=== PATIENT | male | born 1930 | race Asian ===

== ENCOUNTER → 2018-02-23 | Outpatient (CLI) | payer OTHER | LOC: BHFA 11:30 | PROVIDERS: ATTEND Internal Medicine | DX: R94.30 Abnormal result of cardiovascular function study, unspecified (principal); R06.02 Shortness of breath ==

== ENCOUNTER 2018-03-01 06:57 | Observation (INO) | payer OTHER, MEDICAID ==
[2018-03-01] MEDS ORDERED: diphenhydrAMINE 25 MG CAP PO ONE (07:05)
[2018-03-01] MEDS ORDERED: NS 1,000 ML IV ONE (07:05)
[2018-03-01] MEDS ORDERED: BACITRACIN IRRIGATION/NS 50,000 UNITS/1,000 ML BTL IRR ONE (07:05)
[2018-03-01] MEDS ORDERED: DIAZEPAM 5 MG TAB PO ONE (07:05)
[2018-03-01] MEDS ORDERED: ceFAZolin 2 GM/DEXTROSE 100 ML IV ONE (07:05)
[2018-03-01 07:52] LABS: PLATELET COUNT 221 10^3/uL (150-400)
[2018-03-01 07:59] LABS: INR 0.87 (0.83-1.16); PROTIME(PATIENT) 12.1 SEC (12.0-15.0)
[2018-03-01] MEDS ORDERED: LIDOCAINE 1% 300 MG/30 ML SDV ONE (08:05)
[2018-03-01] MEDS ORDERED: BUPIVACAINE 0.75% 10 ML SDV ONE ×2 (08:05→09:15)
[2018-03-01] MEDS ORDERED: IOPAMIDOL (ISOVUE-300) 100 ML BTL ONE (08:05)
--- NOTE | 2018-03-01 08:45 | PDGENHP ---
History & Physical Chief Complaint: chf Relevant Physical Exam: [id number] rrr cta ao3 Cardiorespiratory Assessment: for biv pacemaker (patient and daughter decline ICD)
--- NOTE | 2018-03-01 08:46 | CPEKG ---
Test Reason : OPEN Blood Pressure : / mmHG Vent. Rate : 086 BPM Atrial Rate : 079 BPM P-R Int : 156 ms QRS Dur : 140 ms QT Int : 397 ms P-R-T Axes : 045 -30 124 degrees QTc Int : 475 ms Sinus arrhythmia Left bundle branch block Confirmed by Param Otero ([id number]) on 03/01/2018 8:46:10 AM Referred By: Confirmed By:Param Otero
[2018-03-01] MEDS ORDERED: REMIFENTANIL HCL 1 MG VIAL ONE (08:58)
[2018-03-01] MEDS ORDERED: PROPOFOL/EMULSION 500 MG/50 ML BOTTLE IV ONE (08:58)
[2018-03-01] MEDS ORDERED: LIDOCAINE 2% 100 MG/5 ML SYR ONE (08:59)
[2018-03-01] MEDS ORDERED: DEXMEDETOMIDINE HCL 400 MCG in NS 100 ML IV ONE (09:00)
[2018-03-01] MEDS ORDERED: ePHEDrine SULFATE 25 MG/5 ML SYR ONE (09:43)
--- NOTE | 2018-03-01 10:49 | EPPROC ---
Electrophysiology Procedure Note: PROCEDURE PERFORMED: 1. Implantation of an A BiV Pacemaker 2. Subclavian vein angiography 3. Fluoroscopy INDICATION: Ischemic CMP LBBB PROCEDURE NOTE: Patient presented to the cardiac catheterization laboratory in a fasting, postabsorptive state. Dr. Josh Carter administered sedation. The L infraclavicular area was prepped and draped in the usual sterile fashion. Lidocaine plus bupivacaine was used for local anesthesia. l subclavian venography was performed by injection of iodinated contrast into the left antecubital vein. This was done to assure patency of the vein and also to assess for any anatomical aberrations. Using a combination of blunt and sharp dissection and electrocautery, the dissection was carried down to the prepectoral fascia. A pocket was made in this anatomical plane. All bleeding was controlled with electrocautery. The pocket was packed with gauze soaked in antibiotic solution. Fluoroscopy was utilized during the entire procedure for venous access and placement of the leads. Using a direct stick technique the L extra thoracic axillary vein was accessed with 3 sticks using the modified Seldinger technique. Placement of the guide wires into the venous system was confirmed by low pressure blood return and also by visualizing the guide wires advancing into the inferior vena cava. A purse string suture was applied around the guide wires. Two #7 [place]an sheaths were advanced under fluoroscopic guidance over the guide wires. An active fixation ventricular lead was advanced into the right ventricular apex and screwed in place. An active fixation atrial lead was advanced into the right atrial appendage and screwed in place. The peel away sheaths were removed. Pacing thresholds, sensing parameters and lead impedances were measured. There was no diaphragmatic stimulation at maximum output. The leads were sutured to the prepectoral fascia with 3 nonabsorbable sutures. A 9 [place]an sheath was advanced over the guidewire into the subclavian vein. There was localized staining of SVC RA junction with Whorley sheath. Using a [employer] delivery system the coronary sinus ostium was engaged. Occlusion retrograde coronary sinus angiography was not performed. A coronary sinus quadrapolar lead was advanced into the coronary sinus. An angioplasty wire was advanced through the lead and advanced distally into the mid portion of the lateral branch of the coronary sinus. The lead was advanced over the angioplasty wire. Pacing threshold, sensing and impedance was determined. There was diaphragmatic stimulation at maximum output from electrode 1-2 but not 3-4. The delivery system and the 9 Fr sheath were peeled away. Again, pacing threshold, sensing and impedance was determined. There was no diaphragmatic stimulation at maximum output. The CS lead was secured to the prepectoral fascia with 3 nonabsorbable sutures. Pacing threshold and sensing parameters of the RA, RV and LV leads were checked again. The gauze packing was removed from the pacemaker pocket. The pocket was again inspected for any bleeding. The lead was attached to the pacemaker securely. The pacemaker was inserted into the pocket and secured in place with a nonabsorbable suture. Fluoroscopy was performed in COHEN and LEBANESE planes to verify right sided placement of the lead. Also fluoroscopy of the pacemaker pocket was performed. The pacemaker pocket was closed in 3 layers with absorbable monocryl sutures and ev. Appropriate dressing was applied. The patient left the cardiac catheterization laboratory in stable condition. Serial Numbers: 1. Device [facility] Quadra Allure MP CRTP SN [id number] 2. Atrial Lead SJM Tendril 8TC 46 SN [id number] 3. Right Ventricular Lead SJM Tendril 8TC SN [id number] 4. Left Ventricular Lead SJM Quartet 1457Q 75 cm SN [id number] Stimulation Thresholds & Impedance Measurements: 1. Atrial Lead P 5 mV 1 V 0.5 ms 598 ohm 2. Right Ventricular Lead R 13.1 mV 0.4 V 0.5 ms 559 ohm 3. Left Ventricular Lead R 9.5 mV 0.9 V 0.5 ms 649 ohm Bahman Pacing Parameters: 1. Pacing mode DDDR 2. Lower rate 60 ppm 3. Upper qply554 ppm Patient Problems: Problems Problem Status Onset Cardiomyopathy Acute
[2018-03-01] MEDS ORDERED: NALOXONE HCL 0.4 MG/ML INJ IVP PRN (10:54)
[2018-03-01] MEDS ORDERED: fentaNYL 100 MCG/2 ML INJ IVP PRN (10:54)
[2018-03-01] MEDS ORDERED: DEXAMETHASONE 4 MG/ML VIAL IVP PRN (10:54)
[2018-03-01] MEDS ORDERED: LABETALOL HCL 5 MG/ML 20 ML MDV IVP PRN (10:54)
[2018-03-01] MEDS ORDERED: ALBUTEROL 3 ML DEYVIAL IH PRN (10:54)
[2018-03-01] MEDS ORDERED: ONDANSETRON 4 MG/2 ML VIAL IVP PRN (10:54)
--- NOTE | 2018-03-01 10:58 | POSTANESTH ---
Post Anesthetic Evaluation Cardiovascular Status: Normal, Stable Respiratory Status: Normal, Stable Level of Consciousness/Mental Status: Can Participate in Eval Pain Control: Adequate, Prn Tx Ordered Nausea/Vomiting Control: Adequate, Prn Tx Ordered Complications Possibly Related to Anesthesia: None Noted
--- NOTE | 2018-03-01 11:52 | SOAPPROG ---
SOAP Progress Note Assessment/Plan: Assessment: ANE Pre-Anesthetic Evaluation Patient Name: SUE COHEN Date of : 1930 Patient Status: Clinical Attending Provider: Fidencio Kowalski Date: 03/01/18 08:37 Initialization Date: 03/01/18 08:37 ANE History of Present Illness BiV ICD ANE Past Medical History - Cardiovascular History Hx Hypertension: Yes Hx Arrhythmias: Yes Hx Chest Pain: Yes Hx Coronary Artery / Peripheral Vascular Disease: Yes Hx CHF / Valvular Disease: Yes Cardiovascular History Comment: EF-20% - Pulmonary History Hx COPD: Yes Hx Asthma/Reactive Airway Disease: Yes - Endocrine History Hx Diabetes: Yes - Renal History Hx Renal Disorders: Yes ANE Review of Systems Review of Systems: - Exercise capacity Exercise capacity: >=4 METS ANE Patient History - Allergies Allergies/Adverse Reactions: ibuprofen [From Motrin] Allergy (Verified 02/22/18 11:46) Black Scars on Skin - Home Medications Home medications: home medication list seen and reviewed Home Medications: Aspirin [Aspirin 81mg (*)] 81 mg PO DAILY 02/22/18 [Last Taken 02/27/18 13:30] Atorvastatin Calcium [Lipitor 20 mg (*)] 20 mg PO DAILY 02/22/18 [Last Taken 12/09 20:30] Bimatoprost 0.01% [Lumigan 0.01% (*)] 1 drops EACHEYE DAILY 02/22/18 [Last Taken 02/28/18 22:30] Budesonide [Budesonide 0.5MG/2Ml Neb (*)] 0.5 mg IH BID 02/22/18 [Last Taken 12/09 21:30] Carvedilol [Coreg (*)] 3.125 mg PO BIDMEAL 02/22/18 [Last Taken 02/28/18 20:30] Dorzolamide/Timolol [Cosopt (*)] 1 drop EACHEYE BID 02/22/18 [Last Taken 18:30] Furosemide [Lasix 20 MG (*)] 20 mg PO DAILY 02/22/18 [Last Taken 02/28/18 22:30] Herbals/Supplements -Info Only 1 ea PO DAILY 02/22/18 [Last Taken 02/28/18 22:30 ] Insulin Glargine [Lantus 100 UNITS/ML (*)] 14 units SC DAILY 02/22/18 [Last Taken 02/28/18 22:30] Insulin Lispro [Humalog] 4 - 5 unit SQ TIDMEAL 02/22/18 [Last Taken 02/28/18 22: 30] Ipratropium/Albuterol [Duoneb (*)] 3 ml IH TID 02/22/18 [Last Taken 02/28/18 21: 30] Montelukast Sodium [Singulair 10 mg (*)] 10 mg PO DAILY@1800 02/22/18 [Last Taken 02/28/18 19:00] Omeprazole 40 mg PO DAILY 02/22/18 [Last Taken 02/28/18 06:00] Prasugrel HCl [Effient 5mg (*)] 5 mg PO DAILY 02/22/18 [Last Taken 02/27/18 13: 30] Spironolactone [Aldactone 25 MG (*)] 25 mg PO DAILY 02/22/18 [Last Taken 13:30] Tamsulosin HCl [Flomax 0.4 MG (*)] 0.4 mg PO DAILY 02/22/18 [Last Taken 22:30] metFORMIN HCL [Glucophage 1000 mg] 1,000 mg PO DAILY@12 02/22/18 [Last Taken 12/09 12:00] metFORMIN HCL [Glucophage 500 mg (*)] 500 mg PO BIDMEAL 02/22/18 [Last Taken 12/09 20:30] predniSONE [predniSONE] 10 mg PO DAILY 02/22/18 [Last Taken 02/28/18 09:00] Acetylcysteine 03/01/18 [Last Taken Unknown] Fexofenadine HCl 03/01/18 [Last Taken 02/27/18 09:00] Herbals/Supplements -Info Only 03/01/18 [Last Taken 02/28/18 22:30] Proair Hfa 03/01/18 [Last Taken Unknown] - NPO status NPO Status: no food or drink >8 hours - Anes Hx Anes Hx: no prior problems - Smoking Hx Smoking Status: Former smoker - Alcohol Use Alcohol Use: None - Family Anes Hx Family Anes Hx: none ANE Physical Exam - Airway Neck exam: FROM Mallampati Score: Class 2 Mouth exam: poor dentition - Pulmonary Pulmonary: expiratory wheeze - Cardiovascular Cardiovascular: regular rate and rhythym - ASA Status ASA Status: IV ANE Anesthesia Plan Anesthesia Plan: GA w LMA (MAC vs GA with LMA), MAC Total IV Anesthesia: Yes Plan: 03/01/18 11:51 Objective: Laboratory Results 03/01/18 07:40 03/01/18 07:40 PT 12.1 SEC (12.0-15.0) 03/01/18 07:40 INR 0.87 (0.83-1.16) 03/01/18 07:40 ICD10 Worksheet Patient Problems: Problems Problem Status Onset Cardiomyopathy Acute
[2018-03-01] MEDS ORDERED: IPRATROPIUM/ALBUTEROL 3 ML DEYVIAL ONE (12:05)
[2018-03-01] MEDS: IPRATROPIUM/ALBUTEROL 3 ML DEYVIAL IH SCH ×2 (12:09→21:01)
[2018-03-01] MEDS: INSULIN LISPRO 100 UNIT/ML SC SCH ×2 (15:03→22:20)
--- NOTE | 2018-03-01 16:13 | CPEKG ---
Test Reason : OPEN Blood Pressure : / mmHG Vent. Rate : 092 BPM Atrial Rate : 091 BPM P-R Int : 143 ms QRS Dur : 104 ms QT Int : 374 ms P-R-T Axes : 024 084 -63 degrees QTc Int : 463 ms Atrial-sensed ventricular-paced rhythm V pacing is new in comparison to prior ECG (with LBBB pattern) Confirmed by Param Otero ([id number]) on 03/01/2018 4:12:52 PM Referred By: Confirmed By:Param Otero
[2018-03-01] MEDS ORDERED: MAGNESIUM HYDROXIDE 30 ML UDCUP PO PRN (16:25)
[2018-03-01] MEDS: ACETAMINOPHEN 325 MG TAB PO PRN ×2 (17:02→22:04)
[2018-03-01] MEDS ORDERED: MONTELUKAST SODIUM 10 MG TAB PO SCH (18:00)
[2018-03-01] MEDS: CARVEDILOL 3.125 MG TAB PO SCH (19:34)
[2018-03-01] MEDS: BUDESONIDE 0.5 MG/2 ML AMPUL.NEB IH SCH (21:01)
[2018-03-01] MEDS: DORZOLAMIDE/TIMOLOL 10 ML OPHT.BTL EACHEYE SCH (22:08)
[2018-03-01] MEDS ORDERED: INSULIN GLARGINE 100 UNITS/ML UNIT SC SCH (22:30)
[2018-03-02 06:17] LABS: PLATELET COUNT 169 10^3/uL (150-400)
[2018-03-02] MEDS: ACETAMINOPHEN 325 MG TAB PO PRN (08:05)
[2018-03-02] MEDS: CARVEDILOL 3.125 MG TAB PO SCH (08:05)
[2018-03-02] MEDS: INSULIN LISPRO 100 UNIT/ML SC SCH (08:06)
[2018-03-02] MEDS: DORZOLAMIDE/TIMOLOL 10 ML OPHT.BTL EACHEYE SCH (08:08)
[2018-03-02 08:12] VITALS: BP 120/66
[2018-03-02] MEDS ORDERED: TAMSULOSIN HCL 0.4 MG CAP PO SCH (09:00)
[2018-03-02] MEDS ORDERED: PANTOPRAZOLE SODIUM 40 MG TAB PO SCH (09:00)
[2018-03-02] MEDS ORDERED: BIMATOPROST 0.01% 2.5 ML OPHT.BTL EACHEYE SCH (09:00)
[2018-03-02] MEDS ORDERED: predniSONE 10 MG TAB PO SCH (09:00)
[2018-03-02] MEDS ORDERED: PRASUGREL HCL 5 MG TAB PO SCH (09:00)
[2018-03-02] MEDS ORDERED: ATORVASTATIN CALCIUM 20 MG TAB PO SCH (09:00)
[2018-03-02] MEDS ORDERED: ASPIRIN 81 MG CHEWABLE TAB PO SCH (09:00)
[2018-03-02] MEDS ORDERED: FUROSEMIDE 20 MG TAB PO SCH (09:00)
[2018-03-02] MEDS ORDERED: SPIRONOLACTONE 25 MG TAB PO SCH (09:00)
[2018-03-02] MEDS: IPRATROPIUM/ALBUTEROL 3 ML DEYVIAL IH SCH (09:14)
[2018-03-02] MEDS: BUDESONIDE 0.5 MG/2 ML AMPUL.NEB IH SCH (09:14)
[2018-03-02] MEDS ORDERED: predniSONE 10 MG TAB PO ONE (10:07)
--- NOTE | 2018-03-02 11:52 | GDS ---
DISCHARGE DIAGNOSES: 1. Bradycardia, status post [facility] biventricular pacemaker. 2. Systolic congestive heart failure. 3. 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 4. Hypertension. 5. Hyperlipidemia. 6. Diabetes. HOSPITAL COURSE: For detailed H and P, please see prior dictation. Briefly, the patient is an 88-year-old male with a history of nonischemic and ischemic cardiomyopathy with an ejection fraction of 20%. He also has a history of coronary disease with recent stenting to the right coronary artery and obtuse marginal branch. His cardiomyopathy seemed to be out of proportion to his coronary disease. He had a known left bundle-branch block, which was likely contributing to his cardiomyopathy. Ultimately, the decision was made to proceed with a biventricular pacemaker, which was performed by Dr. Chappell on March 01, 2018. The procedure was uncomplicated. The following morning, the patient denied any significant chest discomfort or shortness of breath. He was monitored on telemetry and remained in normal sinus rhythm. His chest x-ray the day of discharge was negative for pneumothorax. PHYSICAL EXAM: GENERAL: Patient appears in no acute distress. VITALS: Blood pressure 120/66, heart rate 92, oxygen saturation 97% on 2 L. LUNGS: Clear to auscultation. No wheezes, rhonchi, or crackles auscultated. CARDIAC: Regular rate and rhythm. Pacer site is clean, intact, without any evidence of infection or hematoma. DISCHARGE MEDICATIONS: He is to hold metformin for 48 hours post procedure. The remainder of his medications will stay the same. PLAN: The patient is currently stable and ready for discharge home. He is having some difficulties understanding the restrictions of his left arm. I have arranged for outpatient physical therapy. He is scheduled for a wound check and pacer interrogation on March 08 at 1:30 at our office. He is also scheduled for a followup visit with Dr. Chappell on 04/22 at 3:45. His last office visit is with Dr. Kc on March 15 at 10. /[id number]/MODL MTDD
--- NOTE | 2018-03-02 12:09 | PDIAF ---
- Diagnosis Diagnosis: systolic CHF/CMP Code Status: Full Code - Medication Management Discharge Medications: Medications to Continue on Transfer Aspirin [Aspirin 81mg (*)] 81 mg PO DAILY 02/22/18 [Last Taken 02/27/18 13:30] Atorvastatin Calcium [Lipitor 20 mg (*)] 20 mg PO DAILY 02/22/18 [Last Taken 12/09 20:30] Bimatoprost 0.01% [Lumigan 0.01% (*)] 1 drops EACHEYE DAILY 02/22/18 [Last Taken 02/28/18 22:30] Budesonide [Budesonide 0.5MG/2Ml Neb (*)] 0.5 mg IH BID 02/22/18 [Last Taken 12/09 21:30] Carvedilol [Coreg (*)] 3.125 mg PO BIDMEAL 02/22/18 [Last Taken 02/28/18 20:30] Dorzolamide/Timolol [Cosopt (*)] 1 drop EACHEYE BID 02/22/18 [Last Taken 18:30] Furosemide [Lasix 20 MG (*)] 20 mg PO DAILY 02/22/18 [Last Taken 02/28/18 22:30] Herbals/Supplements -Info Only 1 ea PO DAILY 02/22/18 [Last Taken 02/28/18 22:30 ] Insulin Glargine [Lantus 100 UNITS/ML (*)] 14 units SC DAILY@2230 02/22/18 [ Last Taken 02/28/18 22:30] Insulin Lispro [Humalog] 4 - 5 unit SQ TIDMEAL 02/22/18 [Last Taken 02/28/18 22: 30] Ipratropium/Albuterol [Duoneb (*)] 3 ml IH TID 02/22/18 [Last Taken 02/28/18 21: 30] Montelukast Sodium [Singulair 10 mg (*)] 10 mg PO DAILY@1800 02/22/18 [Last Taken 02/28/18 19:00] Omeprazole 40 mg PO DAILY 02/22/18 [Last Taken 02/28/18 06:00] Prasugrel HCl [Effient 5mg (*)] 5 mg PO DAILY 02/22/18 [Last Taken 02/27/18 13: 30] Spironolactone [Aldactone 25 MG (*)] 25 mg PO DAILY 02/22/18 [Last Taken 13:30] Tamsulosin HCl [Flomax 0.4 MG (*)] 0.4 mg PO DAILY 02/22/18 [Last Taken 22:30] metFORMIN HCL [Glucophage 1000 mg] 1,000 mg PO DAILY@12 02/22/18 [Last Taken 12/09 12:00] metFORMIN HCL [Glucophage 500 mg (*)] 500 mg PO BIDMEAL 02/22/18 [Last Taken 12/09 20:30] Albuterol [Proventil Inhaler HFA (*)] 1 - 2 puffs IH DAILY PRN 03/01/18 [Last Taken Unknown] Fexofenadine HCl 180 mg PO DAILY PRN 03/01/18 [Last Taken 02/27/18 09:00] Acetaminophen [Tylenol 325mg (*)] 325 - 650 mg PO Q4HRS PRN tab 03/02/18 [Last Taken Unknown] predniSONE [Prednisone] 20 mg PO DAILY #30 tablet 03/02/18 [Last Taken Unknown] Discharge Medications: Refer to the Discharge Home Medication list for PRN reason. PICC Care - Routine: N/A - Orders Services needed: Registered Nurse, Physical Therapy, Occupational Therapy Diet Recommendation: cardiac -low fat low salt Diet Texture: Regular Texture Diet Weigh Patient: daily Kim: Not applicable Additional Instructions: Pacer precautions discussed. Please hold Metformin for 48 hours post procedure. You are scheduled for a pacer interrogation and wound check on 03/08 at 1:30 You are scheduled for a one month follow up visit with Dr. Chappell on 04/22 3:45 You are scheduled for a 6 week follow up visit with Dr. Kc on 03/15 at 10 - Follow Up Care Current Providers and Referrals: Gibran Bedolla MD [Primary Care Provider] -
--- NOTE | 2018-03-02 12:55 | ASMTLACE ---
LACE Length of stay for Answers: 1 day current admission Acuity / Level of Answers: No Care: Did the patient have an inpatient admission? Comorbidities - select Answers: Chronic pulmonary disease all that apply Congestive heart failure Coronary Artery Disease Other Notes: HTN, pacer # of Emergency department Answers: 0 visits in the last 6 months Score: 8 Date Signed: 03/02/2018 12:55 PM Electronically Signed By:Sandra Cross
--- NOTE | 2018-03-02 12:58 | ASDISCHSUM ---
Discharge Information Plan Status:Home with Home Health Medically Cleared to Leave:03/02/2018 Discharge Date:03/02/2018 12:26 PM D/C Disposition:Home Health Service [facility] D/C Disposition:Home, Routine, Self-Care Projected Discharge Date:03/02/2018 11:00 AM Transportation at D/C:Family Discharge Delay Reason: Follow-Up Date:03/02/2018 11:00 AM Discharge Slot: Final Diagnosis:arrhythmia, pacer placement, cardiomyopathy Placement Information Referral Type:*Home Health Care Services Referral ID:[id number] Provider [facility] [address] [facility] [address] 2: City:[place] Selection Factors: State:[place] Patient Contact Information Contact Name:JOCELIN Relationship:Son Address: Work Phone: City: [facility] Phone: [facility]/Zip Code: Email: Financial Information Financial Class:Medicare Primary Plan Desc:MEDICARE OUTPATIENT Primary Plan Number:[id number] Secondary Plan Desc:MEDICAID [place] Secondary Plan Number:[id number] Assessment Information LACE LACE Length of stay for Answers: 1 day current admission Acuity / Level of Answers: No Care: Did the patient have an inpatient admission? Comorbidities - select Answers: Chronic pulmonary disease all that apply Congestive heart failure Coronary Artery Disease Other Notes: HTN, pacer # of Emergency department Answers: 0 visits in the last 6 months Score: 8 Date Signed: 03/02/2018 12:55 PM Electronically Signed By:Sandra Cross Case Management Discharge Plan Note Case Management Discharge Discharge Order Complete? Answers: Yes Patient to Obtain Answers: via Family Medications Transportation Arranged Answers: Family/Friends Faxed Final Orders Answers: No Agency/Facility Transfer Answers: Yes Report Printed & Faxed to Receiving Agency Family Notified Answers: Yes Notes: in the room Discharge Comments Notes: Pt admitted for pacer placement. Discharged home where he lives with . Son to stay in the home for a couple days to help pt with ADLs. RN/PT/OT services ordered by provider. [facility] accepted and will follow up with patient. No further CM needs noted at this time. Date Signed: 03/02/2018 12:57 PM Electronically Signed By:Sandra Cross Intervention Information Intervention Type:*BARROS-Signed Date of Service:03/02/2018 09:48 AM Patient Type:Observation Staff Member:Azucena Gerardo Hours: Discipline: Severity: Comment:
--- NOTE | 2018-03-02 16:53 | CPEKG ---
Test Reason : OPEN Blood Pressure : / mmHG Vent. Rate : 093 BPM Atrial Rate : 090 BPM P-R Int : 069 ms QRS Dur : 101 ms QT Int : 362 ms P-R-T Axes : 061 115 -70 degrees QTc Int : 451 ms Intermittent Ventricular-paced complexes Underlying sinus rhythm Confirmed by Param Otero ([id number]) on 03/02/2018 4:52:51 PM Referred By: Confirmed By:Param Otero
== END 2018-03-02 12:26 | disposition home or self-care (01) ==
LOC: FCATH 06:57 → F2W 10:46
PROVIDERS: ADMIT Internal Medicine Cardiovascular Disease; ATTEND Internal Medicine Cardiovascular Disease
DX: R00.1 Bradycardia, unspecified (principal); I50.9 Heart failure, unspecified; I10 Essential (primary) hypertension; E78.5 Hyperlipidemia, unspecified; E11.9 Type 2 diabetes mellitus without complications
CPT/HCPCS: 33208; 71045; 71046; 93005; C1769; C1898; C1900; C2621; J0690; J1815; J2001; J2704; J7512; J7626; Q9967

== ENCOUNTER → 2018-08-13 | Outpatient (CLI) | payer OTHER, MEDICAID | LOC: BHFA 16:15 | PROVIDERS: ATTEND Internal Medicine Cardiovascular Disease | DX: I50.9 Heart failure, unspecified (principal) ==